=== PATIENT | female | born 1950 | race Caucasian/White ===

== ENCOUNTER 2023-03-11 10:00 | Inpatient (IN) | payer OTHER ==
[~2023-03-11 10:00] MED LIST: PERCOCET 5/3251 TAB PO; POLY119PG PO; RECTICARE30 GM TP
[2023-03-12 10:00] LABS: URINE APPEARANCE Clear; URINE BILIRRUBIN Negative (NEGATIVE); URINE COLOR Yellow; URINE GLUCOSE Negative (NEGATIVE); URINE LEUKOCYTE Small; URINE NITRATE Negative; URINE PROTEIN Negative (NEGATIVE); URINE UROBILINOGEN 0.2 E.U./dl
[2023-03-12 10:07] LABS: URINE BACTERIA 27.7 uL (0.0-1933); URINE EPITHELIAL CELLS 3.5 uL (0.0-38.8); URINE RBC 7.9 uL (0.0-20.8); URINE WBC 2.9 uL (0.0-23.2)
[2023-03-12 10:24] LABS: HEMATOCRIT 41.7 % (36.0-45.00); HEMOGLOBIN 14.2 g/dL (12.0-15.00); MEAN CELL VOLUME 90.6 fL (80.00-100.00); MEAN CORPUSCULAR HEMOGLOBIN 30.8 pg (27.00-32.0); PLATELET COUNT 172 K/uL (150-450)
[2023-03-12 10:50] LABS: URINE BLOOD TRACES
[2023-03-12 10:52] LABS: INR 1.06; PARTIAL THROMBOPLASTIN TIME 26.4 SECONDS (22.0-34.0); PROTHROMBIN TIME 11.1 SECONDS (9.0-11.5)
[2023-03-12 11:06] LABS: ALBUMIN 3.9 gm/dL (3.4-5.0); BILIRUBIN TOTAL 1.42 mg/dL (0.3-1.2); CALCIUM 9.4 mg/dL (8.5-10.1); CREATININE SERUM 0.69 mg/dL (0.55-1.02); GFR 83.17; GLOBULINA 3.1 G/DL (2.4-3.5); POTASSIUM 4.32 mEq/L (3.5-5.1)
[2023-03-17 14:18] LABS: HEMATOCRIT 36.4 % (36.0-45.00); HEMOGLOBIN 12.6 g/dL (12.0-15.00); MEAN CELL VOLUME 89.1 fL (80.00-100.00); MEAN CORPUSCULAR HEMOGLOBIN 30.8 pg (27.00-32.0); MEAN CORPUSCULAR HGB CONC 34.6 g/dl (32.0-36.0); PLATELET COUNT 150 K/uL (150-450); RED BLOOD COUNT 4.08 M/uL (4.00-6.00); RED CELL DISTRIBUTION WIDTH 12.9 % (11.5-14.5)
[2023-03-17] MEDS ORDERED: CANDESARTAN CIL32 MG (14:50)
[2023-03-17] MEDS ORDERED: MAXIMUM D3325 MCG (14:50)
[2023-03-17] MEDS ORDERED: MONTELUKAST SOD10 MG (14:50)
[2023-03-17] MEDS ORDERED: ROSUVASTATIN CA10 MG (14:50)
[2023-03-17] MEDS ORDERED: EZETIMIBE10 MG (14:50)
[2023-03-18 07:12] LABS: HEMATOCRIT 35.9 % (36.0-45.00); HEMOGLOBIN 12.5 g/dL (12.0-15.00); MEAN CELL VOLUME 88.2 fL (80.00-100.00); MEAN CORPUSCULAR HEMOGLOBIN 30.8 pg (27.00-32.0); PLATELET COUNT 146 K/uL (150-450); RED BLOOD COUNT 4.07 M/uL (4.00-6.00); RED CELL DISTRIBUTION WIDTH 13.5 % (11.5-14.5)
[2023-03-18 08:31] LABS: ALBUMIN 3.2 gm/dL (3.4-5.0); CALCIUM 8.5 mg/dL (8.5-10.1); CREATININE SERUM 0.62 mg/dL (0.55-1.02); GFR 94.09; MAGNESIUM 1.6 mg/dL (1.8-2.4); PHOSPHOROUS 3.2 mg/dL (2.5-4.9); POTASSIUM 4.13 mEq/L (3.5-5.1)
[2023-03-18] MEDS ORDERED: NEURONTIN300 MG PO (09:01)
[2023-03-18] MEDS ORDERED: TRAM1TAB98 PO (09:01)
== END 2023-03-18 13:51 | disposition home or self-care (01) | DRG 748 ==
LOC: O/R 03-17 08:16 → SURH 03-17 08:45 → SURG 03-17 15:32
PROVIDERS: ADMIT Surgery; ATTEND Surgery
PROC: 3E0T3BZ Introduction of Anesthetic Agent into Peripheral Nerves and Plexi, Percutaneous Approach (ICD-10-PCS; 2023-03-17)
PROC: 0JQC0ZZ Repair Pelvic Region Subcutaneous Tissue and Fascia, Open Approach (ICD-10-PCS; principal; 2023-03-17 10:15)
DX: N81.6 Rectocele (principal); Z20.822 Contact with and (suspected) exposure to COVID-19